=== PATIENT | female | born 1995 ===

== ENCOUNTER → 2022-08-26 | Outpatient (CLI) | payer OTHER ==
[2022-08-26 15:31] LABS: Source, Urine Clean Catch
[2022-08-26 18:42] LABS: Amorphous Heavy (0-Heavy); Bacteria Few /hpf; Red Blood Cells, Urine 0-2 /hpf (0-2); Squamous Epithelial Cells Few /hpf (Few); White Blood Cells, Urine 0-2 /hpf (0-5)
== END | disposition home or self-care (01) ==
LOC: LAB SHORT 15:29 → LAB 15:29
PROVIDERS: Advanced Practice Midwife
DX: Z34.01 Encounter for supervision of normal first pregnancy, first trimester (principal)
CPT/HCPCS: 81015; 87077; 87086; 87147; 87186

== ENCOUNTER → 2022-09-16 | Outpatient (CLI) | payer OTHER ==
[2022-09-18 08:07] LABS: CHLAMYDIA TRACHOMATIS, NAA Negative (Negative)
== END | disposition home or self-care (01) ==
LOC: LAB SHORT 15:46
PROVIDERS: Obstetrics & Gynecology
DX: Z34.81 Encounter for supervision of other normal pregnancy, first trimester (principal)
CPT/HCPCS: 87491; 87591

== ENCOUNTER → 2023-02-28 | Outpatient (CLI) | payer OTHER | END | disposition home or self-care (01) | LOC: LAB 14:10 → LAB SHORT 14:10 | DX: O09.93 Supervision of high risk pregnancy, unspecified, third trimester (principal) | CPT/HCPCS: 87081; 87150 ==

== ENCOUNTER 2023-03-20 07:10 | Inpatient (IN) | payer OTHER ==
[2023-03-20] VITALS (24 sets, daily range): BP systolic 94–140; BP diastolic 49–82
[~2023-03-20] VITALS: Ht 175.3 cm; Wt 73.3 kg
[2023-03-20 08:06] LABS: BASOPHILS ABSOLUTE AUTO 0.02 K/mm3 (0.00-0.23); BASOPHILS PERCENT AUTO 0 % (0-2); EOSINOPHILS ABSOLUTE AUTO 0.03 K/mm3 (0.00-0.68); EOSINOPHILS PERCENT AUTO 1 % (0-6); Hematocrit 35.1 % (33.0-51.0); Hemoglobin 12.3 g/dL (11.5-16.0); IMMATURE GRAN ABSOLUTE AUTO 0.04 K/mm3 (0.00-0.10); IMMATURE GRAN PERCENT AUTO 1 % (0-1); LYMPHOCYTES PERCENT AUTO 27 % (21-46); MONOCYTES ABSOLUTE AUTO 0.34 K/mm3 (0.16-1.47); MONOCYTES PERCENT AUTO 7 % (4-13); Mean Corpuscular HGB 31.5 pg (26.0-34.0); Mean Corpuscular Volume 90 fL (80-100); Mean Platelet Volume 11.9 fL (9.1-12.4); NEUTROPHILS ABSOLUTE AUTO 3.05 K/mm3 (1.96-9.15); NEUTROPHILS PERCENT AUTO 64 % (41-73); Platelet Count 151 K/mm3 (150-400); RDW Coefficient Variation 13.1 % (11.7-14.2); RDW Standard Deviation 42.7 fL (35.1-46.3); White Blood Cell Count 4.78 K/mm3 (4.00-11.30)
[2023-03-20] MEDS ORDERED: SERT50 PO (08:12)
[2023-03-20] MEDS ORDERED: PRENATAL TABLE1 EAC2 PO (08:13)
--- NOTE | 2023-03-20 08:48 | NUR ---
PT HER FOR SCHDIULED PRIMARY C/S DUE TO PREVIOS DYSTOSIA. FHT 112 DOPPLERED PT REPORTS TAKING UNISOMLAST NIGHT. CONSENTS SIGNED PREOP PREFORMED
--- NOTE | 2023-03-20 10:30 | NUR ---
03/20/23 1030 S[address] [place]jas C/S BOY DELIVERED AT 1009 WEIGHT 9-6 CORD BLOOD TO JOSE LANDEROS
--- NOTE | 2023-03-20 17:45 | NUR ---
REPORT TO JOSE LANDEROS
[2023-03-21 04:36] VITALS: BP 130/78
[2023-03-21 05:35] LABS: BASOPHILS ABSOLUTE AUTO 0.02 K/mm3 (0.00-0.23); BASOPHILS PERCENT AUTO 0 % (0-2); EOSINOPHILS ABSOLUTE AUTO 0.09 K/mm3 (0.00-0.68); EOSINOPHILS PERCENT AUTO 2 % (0-6); Hematocrit 26.7 % (33.0-51.0); IMMATURE GRAN ABSOLUTE AUTO 0.04 K/mm3 (0.00-0.10); IMMATURE GRAN PERCENT AUTO 1 % (0-1); LYMPHOCYTES ABSOLUTE AUTO 1.02 K/mm3 (0.84-5.20); LYMPHOCYTES PERCENT AUTO 17 % (21-46); MONOCYTES ABSOLUTE AUTO 0.32 K/mm3 (0.16-1.47); MONOCYTES PERCENT AUTO 5 % (4-13); Mean Corpuscular HGB 31.3 pg (26.0-34.0); Mean Corpuscular HGB Conc 33.7 g/dL (31.5-36.5); Mean Corpuscular Volume 93 fL (80-100); Mean Platelet Volume 11.6 fL (9.1-12.4); NEUTROPHILS ABSOLUTE AUTO 4.69 K/mm3 (1.96-9.15); NEUTROPHILS PERCENT AUTO 76 % (41-73); Platelet Count 115 K/mm3 (150-400); RDW Coefficient Variation 13.4 % (11.7-14.2); RDW Standard Deviation 44.8 fL (35.1-46.3); Red Blood Cell Count 2.88 M/mm3 (3.80-5.20); White Blood Cell Count 6.18 K/mm3 (4.00-11.30)
[2023-03-21 07:19] VITALS: BP 109/71
[2023-03-21] MEDS ORDERED: ACET500 PO (09:12)
[2023-03-21] MEDS ORDERED: OXAYDO5 M1 PO (09:13)
[2023-03-21] MEDS ORDERED: IBUP800 PO (09:15)
[2023-03-21 11:43] VITALS: BP 110/62
--- NOTE | 2023-03-21 15:07 | NUR ---
PT DISCHARGING TO [facility], PT HAS OWN MEDS AT [facility]
== END 2023-03-21 15:00 | disposition home or self-care (01) | DRG 788 ==
LOC: BC 07:10
PROVIDERS: ADMIT Obstetrics & Gynecology
PROC: 3E0234Z Introduction of Serum, Toxoid and Vaccine into Muscle, Percutaneous Approach (ICD-10-PCS; 2023-03-20)
PROC: 10D00Z1 Extraction of Products of Conception, Low, Open Approach (ICD-10-PCS; principal; 2023-03-20 09:30)
DX: O99.02 Anemia complicating childbirth (principal); O66.0 Obstructed labor due to shoulder dystocia; O99.344 Other mental disorders complicating childbirth; F32.A Depression, unspecified; F41.9 Anxiety disorder, unspecified; Z3A.39 39 weeks gestation of pregnancy; Z37.0 Single live birth; Z79.899 Other long term (current) drug therapy; Z67.11 Type A blood, Rh negative; Z88.0 Allergy status to penicillin
CPT/HCPCS: 36415; 82947; 85025; 85460; 86850; 86900; 86901; 96372; A9270; J1580; J1885; J2371; J2590; J2765; J2791; J3010; J7120

== ENCOUNTER → 2023-03-29 | Outpatient (CLI) | payer OTHER ==
[~2023-03-29] MED LIST: ACET500 PO; IBUP800 PO; OXAYDO5 M1 PO; PRENATAL TABLE1 EAC2 PO; SERT50 PO
[2023-03-29 15:38] LABS: Source, Urine Clean Catch
[2023-03-29 17:51] LABS: Bilirubin, Urine Neg (Neg); Blood, Urine 5+ (Neg); Color, Urine Yellow (P-Yellow); Glucose Qualitative, Urine Neg (Neg); Ketones, Urine Neg (Neg); Leukocyte Esterase, Urine 1+ (Neg); Nitrite, Urine Neg (Neg); Protein, Urine Neg (Neg); Urobilinogen, Urine NORM (Normal)
[2023-03-29 18:26] LABS: Appearance, Urine Hazy (Clear)
[2023-03-29 18:27] LABS: Bacteria Mod /hpf; Mucus Light (0-Heavy); Squamous Epithelial Cells Rare /hpf (Few); Transitional Epithelial Cells Few /hpf (0-Rare)
== END ==
LOC: LAB SHORT 15:36 → LAB 15:36
PROVIDERS: Obstetrics & Gynecology
DX: R30.0 Dysuria (principal)
CPT/HCPCS: 81001; 87077; 87086; 87186